=== PATIENT | male | born 1975 | race Caucasian/White ===

== ENCOUNTER → 2017-05-08 | Outpatient (CLI) | payer BC ==
[~2017-05-08] MED LIST: CATHETER FLUSH 10 ML SYR IV PRN
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
== END ==
LOC: CARD 10:44
PROVIDERS: ATTEND Orthopaedic Surgery
DX: M84.361A Stress fracture, right tibia, initial encounter for fracture (principal)
CPT/HCPCS: 78315

== ENCOUNTER 2017-10-27 00:32 | Emergency (ER) | payer BC ==
[~2017-10-27] VITALS: Ht 175.3 cm; Wt 70.3 kg
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
[2017-10-27] MEDS ORDERED: LIDOCAINE 1% INJ 50 ML (XYLOCAINE) VIAL IJ ONE (02:15)
[2017-10-27] MEDS ORDERED: SULF-222 PO (03:29)
[2017-10-27] MEDS ORDERED: ACHD5005 PO (03:29)
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
[2017-10-27] MEDS ORDERED: CEFD300C3 PO (03:47)
[2017-10-27 03:51] VITALS: BP 119/76
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
== END 2017-10-27 03:49 | disposition home or self-care (01) ==
LOC: EDUNIT# 00:32 → ER 00:35
DX: S09.90XA Unspecified injury of head, initial encounter (principal); S01.311A Laceration without foreign body of right ear, initial encounter; W01.190A Fall on same level from slipping, tripping and stumbling with subsequent striking against furniture, initial encounter
CPT/HCPCS: 12052; 70450

== ENCOUNTER 2017-11-05 08:25 | Emergency (ER) | payer BC ==
[~2017-11-05] VITALS: Ht 175.3 cm; Wt 70.3 kg
[~2017-11-05 08:25] MED LIST changes: +ACHD5005 PO; -CATHETER FLUSH 10 ML SYR IV PRN; +CEFD300C3 PO; +SULF-222 PO
--- OUTSIDE RECORDS SUMMARY | 2017-11-05 08:32 | XMS REPORT | Continuity of Care Document ---
Author Author [facility] Organization [facility] Address Unknown Phone Unavailable Allergies Active Description Code Type Severity Reaction Onset Reported/Identified Relationship to Patient Clinical Status Yes No Allergy Information Available [id number] Drug Allergy Unknown N/A 2016 Yes Penicillins [id number] Drug Allergy Unknown N/A 10/27/2017 Medications There is no data. Problems Date Dx Coded Attending Type Code Diagnosis Diagnosed By 06/24/2015 BEVERLY BLISS MD Ot 786.50 05/08/2017 BEVERLY BLISS MD Ot 786.50 CHEST PAIN NOS 05/30/2017 YARELI BAKER MD, Ot M84.361A STRESS FRACTURE, RIGHT TIBIA, INITIAL EN 10/27/2017 BEVERLY BLISS MD Ot 786.50 CHEST PAIN NOS 10/27/2017 YARELI BAKER MD, Ot M84.361A STRESS FRACTURE, RIGHT TIBIA, INITIAL EN 10/27/2017 BEVERLY BLISS MD Ot 786.50 CHEST PAIN NOS 10/27/2017 OLIVIA KUHN, YARELI Senior Ot M84.361A STRESS FRACTURE, RIGHT TIBIA, INITIAL EN Procedures There is no data. Results There is no data. Encounters ACCT No. Visit Date/Time Discharge Status Pt. Type Provider Facility Loc./Unit Complaint [id number] 10/27/2017 00:35:00 10/27/2017 03:49:00 DIS Emergency MIGUEL A MOORE [facility] ER RT EAR INJURY [id number] 05/08/2017 10:44:00 05/08/2017 23:59:59 CLS Outpatient YARELI BAKER MD [facility] CARD R TIBIA STRESS FRACTURE [id number] 06/08/2015 06:56:00 06/08/2015 23:59:59 CLS Outpatient BEVERLY BLISS MD [facility] CARD CHEST PAIN
[2017-11-05 09:50] VITALS: BP 132/85
== END 2017-11-05 09:50 | disposition home or self-care (01) ==
LOC: EDUNIT# 08:25 → ER 08:26
DX: S01.311D Laceration without foreign body of right ear, subsequent encounter (principal); X58.XXXD Exposure to other specified factors, subsequent encounter

== ENCOUNTER 2019-09-28 11:09 | Emergency (ER) | payer BC ==
[~2019-09-28] VITALS: Ht 177.8 cm; Wt 71.8 kg
--- NOTE | 2019-09-28 11:33 | ED Headache ---
General Stated Complaint: HEADACHES Source: patient Exam Limitations: no limitations History of Present Illness Date Seen by Provider: Sep 28, 2019 Time Seen by Provider: 11:16 Initial Comments Patient presents to ER by private conveyance with chief complaint the last week expressing headaches which are new to him. He has an occasional sinus headache but has not had any sinusitis or congestion significantly lately. The headache is global, circumferential, non-throbbing. He doesn't know fevers chills nausea vomiting visual disturbances weakness and gait and balance falls numbness tingling or other worrisome symptoms. He said Sunday, 6 days ago he expresses a headache during sex and again , 3 days ago he had a headache while running and yesterday he can't have it during masturbation. The headaches last for just a few minutes and spontaneously resolved. He does not take anything for them but yesterday he did take an ibuprofen however he feels a headache went away before the ibuprofen could've helped. He does not have a history of migraines nor familial history. He's not had any weight loss or weight gain. He is an endurance athlete and runner and does have some mild anxiety especially about his headaches recently. He follows with Dr. Jiang and has had normal workup up until now. He does not take any medications nor have any significant medical history other than anxiety. He does not smoke. He has not used marijuana long time. He does drink alcohol usually every other day. No recent history of head trauma. Allergies and Home Medications Allergies Coded Allergies: Penicillins (Verified Allergy, Unknown, 10/27/17) Home Medications Cefdinir 300 Mg Capsule, 300 MG PO BID Prescribed by: MIGUEL A STEWART on 10/27/17 0347 Hydrocodone Bit/Acetaminophen 1 Tab Tab, 1 TAB PO Q4H PRN for pain Prescribed by: MIGUEL A STEWART on 10/27/17 0329 Patient Home Medication List Home Medication List Reviewed: Yes Review of Systems Review of Systems Constitutional: No chills, No fever, No weakness, No weight gain, No weight loss Eyes: Denies Blindness, Denies Blurred Vision, Denies Drainage Ears, Nose, Mouth, Throat: denies ear pain, denies ear discharge, denies mouth pain, denies mouth swelling, denies throat swelling Respiratory: No cough, No hemoptysis, No short of breath Cardiovascular: No chest pain, No edema Gastrointestinal: No abdominal pain, No nausea, No vomiting Genitourinary: No discharge, No dysuria Musculoskeletal: No back pain, No joint pain Skin: No pruritus, No rash Psychiatric/Neurological: See HPI, Anxiety; Denies Depressed; Headache; Denies Numbness, Denies Paresthesia, Denies Seizure, Denies Tingling, Denies Tremors, Denies Weakness All Other Systems Reviewed Negative Unless Noted: Yes Past Kaxsnod-Qzqqcm-Crltwf Hx Patient Social History Alcohol Use: Regular Use Alcohol Beverage of Choice: Whiskey Recreational Drug Use: Yes Drug of Choice: MJ infrequent Smoking Status: Never a Smoker 2nd Hand Smoke Exposure: No Recent Foreign Travel: No Contact w/Someone Who Travel: No Recent Hopitalizations: No Immunizations Up To Date Tetanus Booster (TDap): Less than 5yrs Seasonal Allergies Seasonal Allergies: No Past Medical History Surgeries: No Respiratory: No Cardiac: No Neurological: No Genitourinary: No Gastrointestinal: No Musculoskeletal: No Endocrine: No HEENT: No Cancer: No Psychosocial: No Integumentary: No Blood Disorders: No Adverse Reaction/Blood Tranf: No Family Medical History No Pertinent Family Hx Physical Exam Vital Signs Vital Signs - First Documented 09/28/19 11:14 Temp 36.9 Pulse 59 Resp 13 B/P (MAP) 143/93 (110) Pulse Ox 100 O2 Delivery Room Air Capillary Refill : Height, Weight, BMI Height: 5'9.00" Weight: 155lbs. oz. 70.583154qp; 21.09 BMI Method:Stated General Appearance: WD/WN, no apparent distress HEENT: PERRL/EOMI (3 mm bilateral), normal ENT inspection, TMs normal, pharynx normal, other (unremarkable bilateral funduscopic exam; no tenderness over the sinuses or temporal region.) Neck: non-tender, full range of motion, supple, normal inspection Cardiovascular: normal peripheral pulses, regular rate, rhythm, no edema Respiratory: no respiratory distress, no accessory muscle use Psychiatric: alert, oriented x 3 Crainal Nerves: normal hearing, normal speech, PERRL Coordination/Gait: normal gait Skin: normal color, warm/dry Procedures/Interventions Suture Size: 6-0 Progress/Results/Core Measures Results/Orders Lab Results Laboratory Tests Test 09/28/19 11:30 Range/Units White Blood Count 3.8 L 4.3-11.0 10^3/uL Red Blood Count 4.29 L 4.35-5.85 10^6/uL Hemoglobin 14.1 13.3-17.7 G/DL Hematocrit 42 40-54 % Mean Corpuscular Volume 97 80-99 FL Mean Corpuscular Hemoglobin 33 25-34 PG Mean Corpuscular Hemoglobin Concent 34 32-36 G/DL Red Cell Distribution Width 12.4 10.0-14.5 % Platelet Count 278 130-400 10^3/uL Mean Platelet Volume 9.3 7.4-10.4 FL Neutrophils (%) (Auto) 55 42-75 % Lymphocytes (%) (Auto) 31 12-44 % Monocytes (%) (Auto) 8 0-12 % Eosinophils (%) (Auto) 6 0-10 % Basophils (%) (Auto) 1 0-10 % Neutrophils # (Auto) 2.1 1.8-7.8 X 10^3 Lymphocytes # (Auto) 1.2 1.0-4.0 X 10^3 Monocytes # (Auto) 0.3 0.0-1.0 X 10^3 Eosinophils # (Auto) 0.2 0.0-0.3 10^3/uL Basophils # (Auto) 0.0 0.0-0.1 10^3/uL Erythrocyte Sedimentation Rate 4 0-15 MM/HR Sodium Level 140 135-145 MMOL/L Potassium Level 4.5 3.6-5.0 MMOL/L Chloride Level 107 98-107 MMOL/L Carbon Dioxide Level 23 21-32 MMOL/L Anion Gap 10 5-14 MMOL/L Blood Urea Nitrogen 9 7-18 MG/DL Creatinine 0.81 0.60-1.30 MG/DL Estimat Glomerular Filtration Rate > 60 BUN/Creatinine Ratio 11 Glucose Level 103 70-105 MG/DL Calcium Level 9.6 8.5-10.1 MG/DL Corrected Calcium 8.5-10.1 MG/DL Total Bilirubin 1.8 H 0.1-1.0 MG/DL Aspartate Amino Transf (AST/SGOT) 27 5-34 U/L Alanine Aminotransferase (ALT/SGPT) 18 0-55 U/L Alkaline Phosphatase 39 L 40-136 U/L Troponin I < 0.028 <0.028 NG/ML C-Reactive Protein High Sensitivity 0.03 0.00-0.50 MG/DL Total Protein 7.2 6.4-8.2 GM/DL Albumin 4.7 H 3.2-4.5 GM/DL My Orders Orders - JEREMÍAS PEREZ Cbc With Automated Diff (09/28/19 11:27) Comprehensive Metabolic Panel (09/28/19 11:27) Hs C Reactive Protein (09/28/19 11:27) Erythrocyte Sedimentation Rate (09/28/19 11:27) Ed Iv/Invasive Line Start (09/28/19 11:38) Lactated Ringers (Lr 1000 Ml Iv Solution (09/28/19 11:38) Ct Angio Head/Neck (09/28/19 11:38) Ekg Tracing (09/28/19 11:38) Continuous Ekg Monitoring (09/28/19 11:38) Troponin I (09/28/19 11:30) Iohexol Injection (Omnipaque 350 Mg/Ml 1 (09/28/19 12:00) Received Contrast (Hold Metformin- Contr (09/28/19 12:00) Sodium Chloride Flush (Catheter Flush Sy (09/28/19 12:00) Ns (Ivpb) (Sodium Chloride 0.9% Ivpb Bag (09/28/19 12:00) Medications Given in ED Current Medications Medications Dose Ordered Sig/Compa Route Start Time Stop Time Status Last Admin Dose Admin Iohexol 100 ml ONCE ONCE IV 09/28/19 12:00 09/28/19 12:01 DC 09/28/19 12:11 75 ML Lactated Ringer's 1,000 ml @ 0 mls/hr Q0M ONCE IV 09/28/19 11:38 09/28/19 11:40 DC 09/28/19 11:58 1,000 MLS/HR Sodium Chloride 10 ml NEEDED PRN IV 09/28/19 12:00 09/28/19 12:11 10 ML Sodium Chloride 100 ml ONCE ONCE IV 09/28/19 12:00 09/28/19 12:01 DC 09/28/19 12:11 80 ML Vital Signs/I&O 09/28/19 11:14 Temp 36.9 Pulse 59 Resp 13 B/P (MAP) 143/93 (110) Pulse Ox 100 O2 Delivery Room Air Progress Progress Note : Time: 11:33 Progress Note We'll check some labs to rule out an anemia as well as an ESR and CRP thinking about inflammatory causes for headaches. CT of the head since he has exertional headaches looking for widened ventricles, tumors or other mass effect. He does not have any significant cardiac risk factors. Workup typically includes a CT angiogram to rule out vascular abnormalities. Subarachnoid hemorrhage would be less likely over a week and should be visible on CT. To help rule out cardiogenic source of his headache. We'll get an EKG and troponin. If our workup today is okay we can set him up with primary care for stress test outpatient and further investigation. Initial ECG Impression Date: Sep 28, 2019 Initial ECG Impression Time: 11:44 Initial ECG Rate: 54 Initial ECG Rhythm: Normal Sinus Initial ECG Intervals: QRS (112 ms) Initial ECG Impression: Normal, Nonspecific Changes Initial ECG Comparisson: No Previous ECG Available Comment No clinically relevant ST elevation or depression. Trivial QRS duration prolongation of 112 ms. Diagnostic Imaging Diagonstic Imaging: CT (without IV contrast and angiogram with IV contrast) Plain Films/CT/US/NM/MRI: head Comments NAME: MARY KAY REYNOSO [facility] REC#: [id number] PT STATUS: REG ER : 1975 PHYSICIAN: JEREMÍAS PEREZ MD ADMIT DATE: 09/28/19/ER Draft Date of Exam:09/28/19 CT ANGIO HEAD/NECK PROCEDURE: CT angiography of the head and CT angiography of the neck with and without contrast. TECHNIQUE: Contiguous noncontrast images were obtained from the skull base through the vertex. After intravenous contrast administration, helical CT angiography of the neck was performed. Source data was reformatted into 3D MIP projections. Delayed post contrast acquisition was also obtained. Auto Exposure Controls were utilized during the CT exam to meet ALARA standards for radiation dose reduction. INDICATION: Headache. Comparison: CT head on 10/27/2017. FINDINGS: CTA Neck: The visualized portions of the aortic arch demonstrate no evidence of aneurysm or dissection. There is conventional branching pattern of the great vessels of the aorta. The brachiocephalic artery is normal in course and caliber. The right and left common carotid origins are unremarkable. The origin of the left subclavian artery is patent. The common carotid arteries and internal carotid arteries demonstrate a normal course and caliber without evidence of dissection or stenosis. The external carotid arteries are patent and unremarkable. The left vertebral artery is dominant. The origin of the right vertebral artery is seen and is unremarkable. The origin of the left vertebral artery is seen and is unremarkable. There is no focal stenosis seen within the neck. There is no dissection. The vertebral arteries are well visualized to up to the level of the basilar artery. The osseous structures of the cervical spine are unremarkable. Included views through the lung apices demonstrate no focal consolidation. CTA brain: The bilateral distal internal carotid arteries without significant stenosis. No stenosis is seen in the bilateral anterior, middle, and posterior cerebral arteries. No evidence of aneurysm the [place]. In the posterior circulation, both of the vertebral arteries demonstrate normal opacification. The left vertebral artery is dominant. The right vertebral artery functionally ends in PICA. Both the right and left PICA arteries are identified. The basilar artery is normal in course and caliber. The terminal branch vessels including the superior cerebellar arteries unremarkable. CT head: The ventricles and cortical sulci are age-appropriate. There is no midline shift or mass-effect. No acute intracranial hemorrhage is seen. There is no CT evidence of acute territorial ischemia. No focal masses or collections are present. The calvarium is intact. Mucosal thickening is seen in the paranasal sinuses. IMPRESSION: 1. No stenosis or aneurysm in the [place]. 2. No stenosis or dissection the bilateral carotid and vertebral arteries. 3. Paranasal sinus disease. Dictated on workstation # [id number] Dict: 09/28/19 1302 Trans: 09/28/19 1307 CV [id number] Interpreted by: WEST MOREAU DO Electronically signed by: Reviewed: Reviewed by Me Departure Impression Primary Impression: Exertional headache, primary Additional Impression: Sinusitis Qualified Codes: J01.00 - Acute maxillary sinusitis, unspecified Disposition: 01 HOME, SELF-CARE Condition: Stable Departure-Patient Inst. Decision time for Depature: 13:12 Referrals: FABRICE JIANG DO (PCP/Family) Primary Care Physician Patient Instructions: Chronic Sinusitis Add. Discharge Instructions: Follow-up with primary care if the pattern persists. Omnicef one capsule twice daily for the next 10 days. Drink lots of fluids. Scripts Cefdinir (Cefdinir) 300 Mg Capsule 300 MG PO BID for 10 Days, #20 CAP 0 Refills Prov: JEREMÍAS PEREZ 09/28/19 JEREMÍAS PEREZ Sep 28, 2019 11:33
[2019-09-28] MEDS ORDERED: LACTATED RINGERS 1,000 ML IV ONE (11:38)
[2019-09-28 11:39] LABS: BASOPHILS % (AUTO) 1 % (0-10); EOSINOPHILS # (AUTO) 0.2 10^3/uL (0.0-0.3); EOSINOPHILS % (AUTO) 6 % (0-10); HEMATOCRIT 42 % (40-54); HEMOGLOBIN 14.1 G/DL (13.3-17.7); LYMPHOCYTES # (AUTO) 1.2 X 10^3 (1.0-4.0); LYMPHOCYTES % (AUTO) 31 % (12-44); MEAN CORPUSCULAR HEMOGLOBIN 33 PG (25-34); MEAN CORPUSCULAR HGB CONC 34 G/DL (32-36); MEAN CORPUSCULAR VOLUME 97 FL (80-99); MEAN PLATELET VOLUME 9.3 FL (7.4-10.4); MONOCYTES # (AUTO) 0.3 X 10^3 (0.0-1.0); MONOCYTES % (AUTO) 8 % (0-12); NEUTROPHILS # (AUTO) 2.1 X 10^3 (1.8-7.8); NEUTROPHILS % (AUTO) 55 % (42-75); PLATELET COUNT 278 10^3/uL (130-400); RED CELL DISTRIBUTION WIDTH 12.4 % (10.0-14.5); WHITE BLOOD COUNT 3.8 10^3/uL (4.3-11.0)
[2019-09-28 11:56] LABS: ALANINE AMINOTRANSFERASE 18 U/L (0-55); ALBUMIN 4.7 GM/DL (3.2-4.5); ALKALINE PHOSPHATASE 39 U/L (40-136); BILIRUBIN,TOTAL 1.8 MG/DL (0.1-1.0); BUN/CREATININE RATIO 11; CALCIUM 9.6 MG/DL (8.5-10.1); CARBON DIOXIDE 23 MMOL/L (21-32); CHLORIDE 107 MMOL/L (98-107); CREATININE SERUM 0.81 MG/DL (0.60-1.30); GFR ESTIMATED > 60; GLUCOSE 103 MG/DL (70-105); POTASSIUM 4.5 MMOL/L (3.6-5.0); SODIUM 140 MMOL/L (135-145); TOTAL PROTEIN 7.2 GM/DL (6.4-8.2)
[2019-09-28] MEDS ORDERED: HOLD METFORMIN - RECEIVED CONTRAST 20 ML VIAL IV SCH (12:00)
[2019-09-28] MEDS ORDERED: IOHEXOL 350 MG/ML 100 ML (OMNIPAQUE 350) VIAL IV ONE (12:00)
[2019-09-28] MEDS ORDERED: NS 100 ML (IVPB) BAG IV ONE (12:00)
[2019-09-28] MEDS ORDERED: CATHETER FLUSH 10 ML SYR IV PRN (12:00)
[2019-09-28 12:12] LABS: ERYTHROCYTE SEDIMENTATION RATE 4 MM/HR (0-15)
--- NOTE | 2019-09-28 13:07 | Diagnostic Imaging Report ---
PROCEDURE: CT angiography of the head and CT angiography of the neck with and without contrast. TECHNIQUE: Contiguous noncontrast images were obtained from the skull base through the vertex. After intravenous contrast administration, helical CT angiography of the neck was performed. Source data was reformatted into 3D MIP projections. Delayed post contrast acquisition was also obtained. Auto Exposure Controls were utilized during the CT exam to meet ALARA standards for radiation dose reduction. INDICATION: Headache. Comparison: CT head on 10/27/2017. FINDINGS: CTA Neck: The visualized portions of the aortic arch demonstrate no evidence of aneurysm or dissection. There is conventional branching pattern of the great vessels of the aorta. The brachiocephalic artery is normal in course and caliber. The right and left common carotid origins are unremarkable. The origin of the left subclavian artery is patent. The common carotid arteries and internal carotid arteries demonstrate a normal course and caliber without evidence of dissection or stenosis. The external carotid arteries are patent and unremarkable. The left vertebral artery is dominant. The origin of the right vertebral artery is seen and is unremarkable. The origin of the left vertebral artery is seen and is unremarkable. There is no focal stenosis seen within the neck. There is no dissection. The vertebral arteries are well visualized to up to the level of the basilar artery. The osseous structures of the cervical spine are unremarkable. Included views through the lung apices demonstrate no focal consolidation. CTA brain: The bilateral distal internal carotid arteries without significant stenosis. No stenosis is seen in the bilateral anterior, middle, and posterior cerebral arteries. No evidence of aneurysm the [place] of [place]. In the posterior circulation, both of the vertebral arteries demonstrate normal opacification. The left vertebral artery is dominant. The right vertebral artery functionally ends in PICA. Both the right and left PICA arteries are identified. The basilar artery is normal in course and caliber. The terminal branch vessels including the superior cerebellar arteries unremarkable. CT head: The ventricles and cortical sulci are age-appropriate. There is no midline shift or mass-effect. No acute intracranial hemorrhage is seen. There is no CT evidence of acute territorial ischemia. No focal masses or collections are present. The calvarium is intact. Mucosal thickening is seen in the paranasal sinuses. IMPRESSION: 1. No stenosis or aneurysm in the [place] of [place]. 2. No stenosis or dissection the bilateral carotid and vertebral arteries. 3. Paranasal sinus disease. Dictated by: Dictated on workstation # [id number]
[2019-09-28] MEDS ORDERED: CEFD300C3 PO (13:16)
[2019-09-28 13:27] VITALS: BP 149/82
== END 2019-09-28 13:25 | disposition home or self-care (01) ==
LOC: EDUNIT# 11:09 → ER 11:10
DX: G44.84 Primary exertional headache (principal); J32.9 Chronic sinusitis, unspecified; F41.9 Anxiety disorder, unspecified; Z88.0 Allergy status to penicillin
CPT/HCPCS: 36415; 70496; 70498; 80053; 84484; 85025; 85652; 86141; 96360